=== PATIENT | male | born 1985 | race Caucasian/White ===

== ENCOUNTER 2021-07-14 18:04 | Emergency (ER) | payer BC, SELFPAY ==
[2021-07-14 18:12] VITALS: BP 130/89; PULSE 68; RESP 20; TEMP 37.1; O2SAT 98
--- NOTE | 2021-07-14 18:56 | ED.WOUNDLAC ---
HPI - Wound/Laceration General Chief Complaint: Wound/Laceration Stated Complaint: Injury on Fingers/ Rash Time Seen by Provider: 07/14/21 18:40 Source: patient and RN notes reviewed Mode of arrival: ambulatory Limitations: no limitations History of Present Illness HPI narrative: Patient presents today complaining of lacerations to his bilateral second fingers. He had pulled back a bowstring and the string came unclamped, striking his fingers at a high speed. Injury occurred yesterday morning. He cleaned the area with peroxide and applied gauze dressing. He has been trying to keep the finger straight as to not continue to reopen the wounds. Denies numbness or tingling. He is not up-to-date on his tetanus vaccine and refuses one today. Related Data Allergies Allergy/AdvReac Type Severity Reaction Status Date / Time No Known Allergies Allergy Unknown Verified 07/14/21 18:23 Review of Systems Review of Systems: CONSTITUTIONAL: Denies body aches, fever, chills, or sweats. EYES: Denies visual changes, redness, or discharge. ENT: Denies rhinorrhea, congestion, sore throat, or otalgia. CARDIOVASCULAR: Denies chest pain, palpitations, or edema. RESPIRATORY: Denies cough or dyspnea. GASTROINTESTINAL: Denies abdominal pain, nausea, vomiting, or diarrhea. GENITOURINARY: Denies dysuria or hematuria. SKIN: Denies rash, itching. + Bilateral second finger lacerations MUSCULOSKELETAL: Denies back pain, joint pain, or myalgia. NEUROLOGIC: Denies headache, numbness, tingling, or weakness. PSYCH: Denies depression or anxiety. [facility] Past Medical History Medical History GERD (gastroesophageal reflux disease) No pertinent family history No significant past medical history Social History Social History Smokeless tobacco user: chewing tobacco Comments At time of signature, I have reviewed and agree with nursing past medical, surgical, social and family history unless otherwise noted. Please see nursing chart for further information. There is no relevant family history pertinent to the presenting complaint Exam Narrative: GENERAL: Well-appearing, well-nourished, and in no acute distress. HEAD: Normocephalic, atraumatic. EYES: EOMI. No redness or drainage. Conjunctivae normal. ENT: Mucous membranes pink and moist. NECK: Normal AROM. CHEST: No respiratory distress. EXTREMITIES: Right second finger: Dorsum of the PIP there is a 2.5 cm partial-thickness linear laceration. No active bleeding. Full range of motion against resistance. Distal sensation intact. Capillary refill normal. Left second finger: 3 cm partial-thickness linear laceration along the dorsum of the PIP. Distal sensation intact. Capillary refill normal. Full range of motion against resistance. SKIN: Warm, dry, no rash. Capillary refill normal. Normal skin turgor. NEURO: No focal deficits. Alert and oriented x3. Gait steady. PSYCH: Normal affect. No signs of depression or anxiety. Course Vital Signs Vital signs: Vital Signs Temperature 98.8 F 07/14/21 18:12 Pulse Rate 68 07/14/21 18:12 Respiratory Rate 20 07/14/21 18:12 Blood Pressure 130/89 07/14/21 18:12 Pulse Oximetry 98 07/14/21 18:12 Temperature 98.8 F 07/14/21 18:12 Pulse Rate 68 07/14/21 18:12 Respiratory Rate 20 07/14/21 18:12 Blood Pressure 130/89 07/14/21 18:12 Pulse Oximetry 98 07/14/21 18:12 Reviewed. Pt has been instructed to follow up with his PCP regarding his elevated blood pressure today. Procedures Orthopedic Splinting/Casting Injury #1: Splinting/Casting Date: 07/14/21 Side: right (Bilateral second fingers) Upper Extremity Immobilizer: finger (other) Splint: prefabricated Pre-Procedure Neuro Vascular Exam: normal Post-Procedure Neuro Vascular Exam: normal MDM - Wound/Laceration Different
== END 2021-07-14 19:03 | disposition home or self-care (01) ==
PROVIDERS: Emergency Provider Nurse Practitioner
DX: S61.211A Laceration without foreign body of left index finger without damage to nail, initial encounter (principal); S61.210A Laceration without foreign body of right index finger without damage to nail, initial encounter; W22.8XXA Striking against or struck by other objects, initial encounter; K21.9 Gastro-esophageal reflux disease without esophagitis; F17.220 Nicotine dependence, chewing tobacco, uncomplicated
CPT/HCPCS: 29130 ×2; 99213; G0463